=== PATIENT | male | born 1965 | race Caucasian/White ===

== ENCOUNTER 2021-03-02 16:34 | Emergency (ER) | payer SELFPAY ==
[2021-03-02] MEDS ORDERED: HYDROcodone/Acetaminophen 5/325 mg Tablet ONE (17:55)
[2021-03-02] MEDS ORDERED: predniSONE 20 MG TAB ONE (17:55)
== END 2021-03-02 18:01 | disposition home or self-care (01) ==
LOC: MADERS 16:34
DX: M54.32 Sciatica, left side (principal); I10 Essential (primary) hypertension; F17.210 Nicotine dependence, cigarettes, uncomplicated; Z85.46 Personal history of malignant neoplasm of prostate
CPT/HCPCS: J7512